=== PATIENT | male | born 1945 | race Caucasian/White ===

== ENCOUNTER 2017-11-23 12:04 | Emergency (ER) | payer OTHER ==
[~2017-11-23] VITALS: Ht 170.2 cm; Wt 104.3 kg
[2017-11-23 12:09] VITALS: Ht 170.2 cm; Wt 104.3 kg
[2017-11-23 15:01] VITALS: BP 110/68
== END 2017-11-23 15:01 | disposition home or self-care (01) ==
LOC: ED 12:04
DX: S42.201A Unspecified fracture of upper end of right humerus, initial encounter for closed fracture (principal); I10 Essential (primary) hypertension; E11.9 Type 2 diabetes mellitus without complications; J44.9 Chronic obstructive pulmonary disease, unspecified; W19.XXXA Unspecified fall, initial encounter; Y93.89 Activity, other specified; Y92.89 Other specified places as the place of occurrence of the external cause; Y99.8 Other external cause status
CPT/HCPCS: J2270; Q0162

== ENCOUNTER 2018-03-10 05:06 | Emergency (ER) | payer OTHER ==
[2018-03-10 06:30] LABS: PLATELET COUNT 82 x10^3mcL (130-400)
[2018-03-10 06:56] LABS: POTASSIUM SERUM 4.1 mmol/L (3.5-5.1); SODIUM SERUM 140 mmol/L (136-145)
[2018-03-10 06:57] LABS: ALBUMIN 2.9 g/dL (3.4-5.0); CARBON DIOXIDE 20.3 mmol/L (21-32); CHLORIDE SERUM 107 mmol/L (98-107); GLUCOSE SERUM 163 mg/dL (74-106)
[2018-03-10 06:58] LABS: ALKALINE PHOSPHATASE 139 U/L (46-116); ALT/SGPT 26 U/L (16-63); AST/SGOT 32 U/L (15-37); BILIRUBIN TOTAL 1.1 mg/dL (0.20-1.00); CALCIUM 8.2 mg/dL (8.5-10.1)
[2018-03-10 07:15] LABS: CHOLESTEROL 171 mg/dL (<200)
[2018-03-10 08:03] LABS: UA SPECIFIC GRAVITY 1.015 (1.005-1.035); microscopic required? YES; urine erythrocyte 2+ (NEGATIVE)
[2018-03-10 08:28] LABS: AMPHETAMINE QUAL UR NONE DETECTED (See below)
[2018-03-10 08:45] VITALS: BP 123/56
== END 2018-03-10 08:40 | disposition short-term general hospital (02) ==
LOC: ED 05:06
PROVIDERS: Emergency Medicine
DX: G40.901 Epilepsy, unspecified, not intractable, with status epilepticus (principal)
CPT/HCPCS: 36569; 36600; 83880; G0480; J2250; J3490; J7030; Q0092

== ENCOUNTER 2018-07-06 00:23 | Inpatient (IN) | payer OTHER ==
[~2018-07-06] VITALS: Ht 167.6 cm; Wt 93.0 kg
[2018-07-06 00:43] VITALS: Ht 167.6 cm; Wt 93.0 kg
[2018-07-06 01:34] LABS: BASOPHIL % 1.5 % (0-2)
[2018-07-06 01:35] LABS: PLATELET COUNT 82 x10^3mcL (130-400); RED CELL DISTRIBUTION WIDTH 15.9 % (11.5-14.5)
[2018-07-06 01:47] LABS: CALCIUM 8.9 mg/dL (8.5-10.1); CARBON DIOXIDE 25.7 mmol/L (21-32); CHLORIDE SERUM 104 mmol/L (98-107); GLUCOSE SERUM 118 mg/dL (74-106); POTASSIUM SERUM 4.6 mmol/L (3.5-5.1); SODIUM SERUM 136 mmol/L (136-145)
[2018-07-06 02:01] LABS: ALKALINE PHOSPHATASE 150 U/L (46-116); ALT/SGPT 33 U/L (16-63); AST/SGOT 38 U/L (15-37); BILIRUBIN TOTAL 1.5 mg/dL (0.20-1.00); FREE T4 1.14 ng/dL (0.76-1.46); TOTAL PROTEIN, SERUM 7.3 g/dL (6.4-8.2)
[2018-07-06 02:03] LABS: ALBUMIN 2.9 g/dL (3.4-5.0)
[2018-07-06] MEDS ORDERED: METFORMIN HCL850 MG PO (02:46)
[2018-07-06] MEDS ORDERED: LACTULOSE10 GM/152 PO (02:47)
[2018-07-06] MEDS ORDERED: FUROSEMIDE20 MG PO (02:48)
[2018-07-06] MEDS ORDERED: ALDACTONE25 MG PO ×2 (02:50)
[2018-07-06] MEDS ORDERED: COMPLEX B1001 TER PO (02:51)
[2018-07-06] MEDS ORDERED: GOOD NEIGHBOR P20 M2 PO (02:51)
[2018-07-06] MEDS ORDERED: GOOD SENSE ASPI81 M3 PO (02:52)
[2018-07-06] MEDS ORDERED: INS7030 SC (02:53)
[2018-07-06 03:50] LABS: UA SPECIFIC GRAVITY 1.015 (1.005-1.035); microscopic required? YES; urine erythrocyte 2+ (NEGATIVE)
[2018-07-06 03:56] LABS: AMPHETAMINE QUAL UR NONE DETECTED (See below)
[2018-07-06 04:12] VITALS: BP 98/62
[2018-07-06 06:00] LABS: CALCIUM 8.7 mg/dL (8.5-10.1); CARBON DIOXIDE 28.3 mmol/L (21-32); CHLORIDE SERUM 105 mmol/L (98-107); GLUCOSE SERUM 137 mg/dL (74-106); POTASSIUM SERUM 4.4 mmol/L (3.5-5.1); SODIUM SERUM 140 mmol/L (136-145)
[2018-07-06 06:26] LABS: BASOPHIL % 0.9 % (0-2)
[2018-07-06 06:32] LABS: PLATELET COUNT 88 x10^3mcL (130-400); RED CELL DISTRIBUTION WIDTH 16.2 % (11.5-14.5)
[2018-07-06 09:43] VITALS: BP 98/62
[2018-07-06 10:33] VITALS: BP 98/56
[2018-07-06 11:20] VITALS: BP 98/56
== END 2018-07-06 11:47 | disposition home or self-care (01) ==
LOC: ED 00:23 → DU 02:35
PROVIDERS: Emergency Medicine; Internal Medicine
DX: K74.60 Unspecified cirrhosis of liver (principal); G93.41 Metabolic encephalopathy; K72.90 Hepatic failure, unspecified without coma; D69.59 Other secondary thrombocytopenia; E11.9 Type 2 diabetes mellitus without complications; J44.9 Chronic obstructive pulmonary disease, unspecified; N39.0 Urinary tract infection, site not specified; I10 Essential (primary) hypertension; Z88.0 Allergy status to penicillin; Z91.19 Patient's noncompliance with other medical treatment and regimen; Z23 Encounter for immunization
CPT/HCPCS: 82962; 83880; 84439; 90658; G0480; J1956; J7042